=== PATIENT | female | born 1960 | race Caucasian/White ===

== ENCOUNTER → 2019-02-09 | Outpatient (CLI) | payer MEDICARE, OTHER ==
--- NOTE | 2019-02-12 08:12 | PE ---
EXAMINATION TYPE: PET CT fusion skull to thigh DATE OF EXAM: 02/09/2019 COMPARISON: Outside chest CT February 01, 2019 HISTORY: History of lung cancer treated [address] TECHNIQUE: Following the intravenous administration of 11.41 mCi of F-18 FDG, whole body images are performed from the skull base to the midthigh. Images are reviewed on the computer in the coronal, a xial, and sagittal planes. Reconstructed rotating images are created on independent workstation and reviewed on the computer. A noncontrast CT is performed in conjunction with the PET scan. SCAN: Subsequent Scan FINDINGS: SKULL BASE AND NECK: No areas of suspicious hypermetabolic uptake. CHEST, MEDIASTINUM, AND HILAR REGION: Background fairly moderate emphysematous change is redemonstrat ed. There is persistent right hilar masslike consolidation with superior extension that shows air bro nchograms that extends anteriorly without suspicious hypermetabolic uptake. There is persistent left upper lobe nodule or nodular consolidation measuring 1.7 x 1.6 cm axial imag e 70 with hypermetabolic uptake, max SUV is 7.09. Inferior and medial to this there is 1.8 x 1.4 cm hypermetabolic spiculated nodule or possible suprah ilar lymph node anterior to left pulmonary artery axial image 79 with max SUV of 6.17. There are abnormal hypermetabolic thoracic lymph nodes, for reference AP window 2.0 x 1.4 cm lymph no de is seen axial image 75 with max SUV of 6.48. There are additional abnormal hypermetabolic prevasc ular and AP window lymph nodes. ABDOMEN AND PELVIS: Liver is heterogeneously hypointense with innumerable hypermetabolic foci likely corresponding to small hypodense areas, for reference max SUV is 11.82 on axial image 118 in the deep medial segment left hepatic lobe. OSSEOUS STRUCTURES: Osseous metastatic disease is present as there are now hypermetabolic foci throug hout the osseous structures, multiple lesions are seen throughout the pelvis as well as the thoracolu mbar spine with poor visualization of corresponding lytic or sclerotic lesions. For reference L2 vert ebra on axial image 149 shows max SUV of 9.87. For reference Left proximal femur lesion on axial imag e 230 shows max SUV of 9.63. OTHER CT: Aneurysm clip suprasellar level axial image 8 is noted. Moderate to severe coronary artery calcification is present which is noted marked underlying coronary artery disease. Main pulmonary artery is dilated at 3.5 cm axial image 83, CT findings consistent with underlying pul monary artery hypertension. Few rim calcified gallstones dependently in the gallbladder are seen. There is 3.8 cm low dense lesio n anterior medial aspect mid to lower pole right kidney and smaller low dense lesion laterally lower pole of the right kidney favoring simple cysts. There are diverticula in the sigmoid colon. Displaced clip into pelvic cul-de-sac axial image 208 is noted. There is facet arthropathy in the lower lumbar spine. IMPRESSION: Recurrent diffuse metastatic disease with left upper lobe suspicious nodule, thoracic kali nopathy, hepatic metastatic disease, and osseous metastatic disease all noted.
== END | disposition home or self-care (01) ==
LOC: RADPETMAIN 11:22
PROVIDERS: ATTEND Family Medicine
DX: C78.7 Secondary malignant neoplasm of liver and intrahepatic bile duct (principal); C79.51 Secondary malignant neoplasm of bone; C34.90 Malignant neoplasm of unspecified part of unspecified bronchus or lung; R59.9 Enlarged lymph nodes, unspecified
CPT/HCPCS: 78815; A9552

== ENCOUNTER → 2019-03-14 | Outpatient (CLI) | payer MEDICARE, OTHER ==
--- NOTE | 2019-03-14 18:13 | CT ---
EXAMINATION TYPE: CT brain w con DATE OF EXAM: 03/14/2019 COMPARISON: PET CT 02/09/2019, MRI brain 11/08/2013 INDICATION: Headaches. History of lung cancer. DLP: 1081.9 mGycm, Automated exposure control for dose reduction was used. CONTRAST: [address] mL Iso[address]-300 [address] of the brain is performed utilizing 3 mm thick sections through the posterior fossa and 3 mm thick sections through the remaining calvarium. Study is performed within 24 hours of arrival to the hosp [facility]. No abnormal hyperdensity is present to suggest an acute intracranial hemorrhage. No mass lesion is evident. No acute infarcts are evident. Ventricles and sulci are appropriate for the patient age. There is some encephalomalacia adjacent to the aneurysm clip in the left suprasellar region. Craniotomy defect is noted at the right frontal te mporal region. Paranasal sinuses and mastoid air cells within the [id number] are clear. Surgical changes are present from aneurysm repair. IMPRESSIONS: 1. Postsurgical changes and postsurgical encephalomalacia discussed above. 2. No suspicious enhancement or significant interval change. 3. No suspicious changes to suggest metastatic disease.
== END | disposition home or self-care (01) ==
LOC: RADCTMAIN 17:02
PROVIDERS: ATTEND Internal Medicine Hematology & Oncology
DX: C34.91 Malignant neoplasm of unspecified part of right bronchus or lung (principal); R51 Headache; Z98.890 Other specified postprocedural states; Z88.0 Allergy status to penicillin
CPT/HCPCS: 70460; Q9967

== ENCOUNTER → 2019-03-28 | Outpatient (CLI) | payer MEDICARE, OTHER ==
--- NOTE | 2019-03-28 16:27 | XR ---
EXAMINATION TYPE: XR pelvis AP view, XR femur LT, XR Hip Complete LT DATE OF EXAM: 03/28/2019 CLINICAL HISTORY: Pelvic and left hip and femur pain. TECHNIQUE: 2 AP views of the pelvis including both hips as well as additional frog leg projection are acquired.. Two views of the left hip and femur are obtained. COMPARISON: PET CT February 09, 2019. FINDINGS: There is limited sensitivity of plain films versus PET/CT. Lucency from overlying bowel gas makes evaluation suboptimal in the pelvis. Tubal ligation clips are present. Sacroiliac and hip join ts are maintained. No obvious lucent lesion present. Images of the left hip do not show obvious lucen t lesion. Images of left femur show no obvious lucent lesion but there is suspicious hypermetabolic u ptake on recent PET/CT bowel present in the proximal left femur corresponding to sclerotic area on CT . IMPRESSION: As above.
== END | disposition home or self-care (01) ==
LOC: RADXRMAIN 15:49
PROVIDERS: ATTEND Internal Medicine Hematology & Oncology
DX: E78.5 Hyperlipidemia, unspecified (principal); I63.9 Cerebral infarction, unspecified; C34.92 Malignant neoplasm of unspecified part of left bronchus or lung; C34.91 Malignant neoplasm of unspecified part of right bronchus or lung; Z98.51 Tubal ligation status
CPT/HCPCS: 72170; 73502

== ENCOUNTER → 2019-07-22 | Outpatient (CLI) | payer MEDICARE, OTHER ==
[2019-07-22 14:39] LABS: Albumin 3.7 g/dL (3.5-5.0); Calcium 10.3 mg/dL (8.4-10.2); Potassium 3.7 mmol/L (3.5-5.1); Total Bilirubin 1.5 mg/dL (0.2-1.3)
--- NOTE | 2019-07-22 16:26 | CT ---
EXAMINATION TYPE: CT ChestAbdPelvis w con DATE OF EXAM: 07/22/2019 COMPARISON: PET/CT 02/09/2019 HISTORY: History of lung cancer. Facial numbness. CT DLP: 2007 mGycm. Automated Exposure Control for Dose Reduction was Utilized. CONTRAST: CT scan of the thorax, abdomen and pelvis is performed with IV Contrast, patient injected with 55 mL of Isovue M300. FINDINGS: LUNGS: Left-sided pulmonary nodule on the left upper lobe spiculated measuring 1.7 x 1.8 cm. On the p rior PET/CT of January 20 this measured 1.7 x 1.6 cm. Post therapy changes on the right. Bronchiectasis, pleural thickening, right hemithorax volume loss, and peribronchial cuffing likely on the basis of postradiation change. Mild emphysematous changes in the lungs. MEDIASTINUM: There are no greater than 1 cm hilar or mediastinal lymph nodes. No pericardial effusi on is seen. Advanced coronary calcifications. Abnormal aorticopulmonary window lymph node measures 1 .4 cm in short axis. This is similar to the prior PET/CT of 02/09/2019. LIVER/GB: Innumerable hepatic lesions throughout the portacaval lymph node measures 0.2 cm in short a xis. Entirety of the hepatic parenchyma. Calcified gallstones are seen. Adenopathy in the danielle hepat is measures 0.4 cm in short axis on image 61. PANCREAS: No pancreatic ductal dilatation. SPLEEN: No significant abnormality is seen. No splenomegaly. ADRENALS: No adrenal gland nodules. KIDNEYS: There are benign-appearing renal cysts with measuring up to 3.6 cm on the right. BOWEL: No dilated large or small bowel. Numerous sigmoid diverticula are seen. Decompression of the distal sigmoid is likely on the basis of colonic spasm. Tubal ligation clips are seen adjacent to the bowel. LYMPH NODES: Normal lymph nodes in the danielle hepatis and periportal caval region as detailed above. OSSEOUS STRUCTURES: Multifocal osseous metastasis most pronounced within the pelvis is seen throughou t the entirety of the spine. No pathologic compression deformities. IMPRESSION: Redemonstration of innumerable metastases within the liver, metastasis of the contralateral lung, abn ormal mediastinal adenopathy, and post therapy changes of the right lung. Hepatic involvement has adv anced from the prior of 02/09/2019 however there is a similar appearance of the thoracic findings.
--- NOTE | 2019-07-22 16:26 | CT ---
EXAMINATION TYPE: CT soft tissue neck w con DATE OF EXAM: 07/22/2019 4:15 PM COMPARISON: CT brain 03/14/2019 HISTORY: History of lung cancer. Facial numbness. CT DLP: 614 mGycm Automated exposure control for dose reduction was used. CONTRAST: CT scan of the neck is performed following with IV Contrast, patient injected with 45 mL of Isovue M3 00. Axial images are obtained, coronal and sagittal reformatted images are reviewed. FINDINGS: Skull base shows a similar appearance, postop changes are noted, there is aneurysm clip wit h artifact noted at the [place] to the left, there is some local encephalomalacia. Airway: Some mild asymmetry calcium tonsil level may be technical, calcification on the right suggest chronic infection. Abnormal soft tissue noted the right hilar region, there is soft tissue nodule in the left upper lobe. Postop procedural changes noted to the right upper lobe with air bronchograms p resent as well as areas of pleural thickening. Parotid/submandibular glands: No gross abnormality seen. Carotid/Vascular Structures: Osseous Structures: Posterior left second rib fracture is nondisplaced, there is sclerotic density pr esent within the posterior fourth rib on the left, heterogeneous density of the visualized spine and ribs. Postop change noted to the left frontal bone. There is abnormal soft tissue density extending f rom the region of the carotid siphon into the sphenoid sinus on the left. Other: IMPRESSION: Abnormal soft tissue as described with erosion through the superior wall of the sphenoid sinus, metastatic disease.
== END | disposition home or self-care (01) ==
LOC: RADCTMAIN 13:56
PROVIDERS: ATTEND Registered Nurse Oncology
DX: C78.7 Secondary malignant neoplasm of liver and intrahepatic bile duct (principal); R59.0 Localized enlarged lymph nodes; R07.9 Chest pain, unspecified; R05 Cough; Z88.0 Allergy status to penicillin
CPT/HCPCS: 80053; 70491; 71260; 74177; Q9967